=== PATIENT | male | born 1935 | race Caucasian/White ===

== ENCOUNTER 2018-05-22 10:50 | Day surgery (SDC) | payer MEDICARE, OTHER ==
[2018-05-14 15:48] VITALS: BMI 33.1
[~2018-05-22 10:50] MED LIST: ACETAMINOPHEN TAB 500 MG TAB PO ONE; DEXAMETHASONE SOD PHOSPHATE 10 MG/ML 1 ML VIAL IV ONE; LACTATED RINGERS 1,000 ML IV SCH; MIDAZOLAM 2 MG/2 ML VIAL IV PRN; ONDANSETRON 4 MG/2 ML VIAL IVP ONE; SCOPOLAMINE 1.5MG/72HR PATCH TRANSDERM ONE; ceFAZolin IN SWFI 2 GM/20 ML SYRINGE IVP ONE; fentaNYL (PF) 50 MCG/ML 2 ML AMP IV PRN
[2018-05-22 11:27] VITALS: BP 161/69; PULSE 60; RESP 16; TEMP 97.5
[2018-05-22] MEDS ORDERED: LIDOCAINE 1% 20 ML VIAL (10MG/ML) FOR IV START INTRADERMA ONE (11:29)
[2018-05-22 11:43] LABS: Glucose,Whole Blood 163 mg/dL (75-99)
[2018-05-22 12:04] LABS: HCT 47.7 % (39.0-53.0); HGB 16.2 gm/dL (13.0-17.5); MCH 30.8 pg (25.0-35.0); MCV 90.8 fL (80.0-100.0); Mean Platelet Volume 8.7; Platelet Count 136 k/uL (150-450); RBC 5.26 m/uL (4.30-5.90); RDW 14.1 % (11.5-15.5); WBC 7.1 k/uL (3.8-10.6)
--- NOTE | 2018-05-22 14:11 | P.OPNOTE ---
Outpatient Note - . Assessment/Comments:: Mr. Sanchez was seen and examined today in the preoperative area prior to his planned fixation of his left Achilles tendon. He says over the past 3 weeks since scheduling the procedure, he has done well he is basically having no pain and he is very being very protective of the left foot. He is currently wearing a boot with a half inch heel lift and bearing recently full weight with minimal discomfort or problems. He does not wear the boot tube bed at night. On physical examination today he is able to actively plantarflex and dorsiflex the ankle fairly well. When asked to plantarflex his ankle against resistance, he has approximately 5 minus out of 5 strength. With with some liner flexion resistance, I'm able to feel a fairly robust continuous layer of scar tissue between the calcaneal tuberosity and the calf muscle. The area is somewhat thickened as is typical for this sort of injury, but there does appear to be reconstitution of the continuity of the tendo Achilles even though his initial injury was an avulsion. I spoke to him length about the current planned surgery of fixation operatively but we also discussed resumption of conservative management of this injury. At this point I feel that the conservative option would probably be better for him as it would avoid a fairly long procedure, the anesthesia, and avoid surgical complications that may result from the incision and the dissection. He is happy with this and wishes to proceed with conservative management. Therefore we are canceling surgery today. We will use the standard protocol that we use in the office. Currently he has approximate 4 weeks of the use of a boot with the heel lift. In another 2-3 weeks we will likely remove the heel left and have him engage in some physical therapy. Between now and then, I have advised him to perform active flexion and extension exercises of the ankle and perform some water exercises. He is still to use the boot and I have advised him and encouraged him to use a cane to take a little bit of weight off that foot for the next couple weeks. Return visit is 2 weeks in the office with me where we will continue the conservative management for his Achilles rupture. All his questions were answered prior to his departure today.
== END 2018-05-22 12:23 | disposition home or self-care (01) ==
LOC: OR 10:50
PROVIDERS: ATTEND Orthopaedic Surgery
DX: S86.012A Strain of left Achilles tendon, initial encounter (principal); I10 Essential (primary) hypertension; E78.5 Hyperlipidemia, unspecified; Z87.891 Personal history of nicotine dependence; E11.9 Type 2 diabetes mellitus without complications; Z79.4 Long term (current) use of insulin; Z79.82 Long term (current) use of aspirin; Z79.1 Long term (current) use of non-steroidal anti-inflammatories (NSAID); Z79.899 Other long term (current) drug therapy; M10.9 Gout, unspecified; Z53.8 Procedure and treatment not carried out for other reasons
CPT/HCPCS: 84132; 85027; J1100; J2405